=== PATIENT | male | born 1965 | race Caucasian/White ===

== ENCOUNTER 2019-04-01 12:32 | Observation (INO) ==
--- NOTE | 2019-04-01 13:02 | Emergency Department Note ---
Disposition Clinical Impression: Chest pain Qualifiers: Chest pain type: unspecified Qualified Code(s): R07.9 - Chest pain, unspecified Disposition: Admitted As Inpatient Condition: Good Time of Disposition: 19:48 General Adult HPI - General Chief complaint: ED Chest Pain Stated complaint: HHR,Don't feel right Time Seen by Provider: 04/01/19 12:45 Source: patient Nursing Notes Reviewed: Yes Vital Signs Reviewed: Yes - History of Present Illness Pain Scale: 0 - Related Data Home Medications Medication Instructions Recorded Confirmed No Known Home Drugs 04/01/19 04/01/19 Allergies Allergy/AdvReac Type Severity Reaction Status Date / Time No Known Allergies Allergy Verified 04/01/19 13:30 Past Medical History - Past Medical History Medical history: Reports: no medical history Psychiatric history: Reports: no psych history - Social History Smoking Status: Never smoker Smokeless Tobacco Status: No Alcohol use: Reports: occasionally Drug use: Reports: none Physical Exam - General General appearance: alert Course Vital Signs Temperature 97.6 F 04/01/19 12:45 Pulse Rate 74 04/01/19 12:45 Respiratory Rate 17 04/01/19 12:45 Blood Pressure 160/99 04/01/19 12:45 O2 Sat by Pulse Oximetry 96 04/01/19 12:45 Temperature 97.9 F 04/01/19 19:47 Pulse Rate 61 04/01/19 19:47 Respiratory Rate 16 04/01/19 19:47 Blood Pressure 134/84 04/01/19 19:47 O2 Sat by Pulse Oximetry 95 04/01/19 19:47 Oxygen Delivery Oxygen Delivery Room Air Medical Decision Making - [facility] Narrative Medical decision making narrative: 1245 hrs.: EKG shows a sinus rhythm, rate is 62, QRS is 124, QTC is 4:30, patient states he was just here at the hospital but we do not seem to have aortic EKG to compare this to. Chest X-Ray 04/01/19 13:23 IMPRESSION: No acute cardiopulmonary process. D/ / 04/01/2019 13:53:23 Zac Storey MD / [facility] Interpreting Provider: Zac Storey MD - Lab Data Result diagrams: 04/01/19 13:37 04/01/19 13:37 Lab Results 04/01/19 04/01/1919 Range/Units 12:40 13:37 13:37 WBC 8.2 (4.3-11.1) K/mcL RBC 4.79 (4.19-5.50) M/mcL Hgb 14.4 (12.9-16.9) g/dL Hct 42.8 (37.5-50.1) % MCV 89.4 (83.0-100.0) fL MCH 30.1 (28.0-33.3) pg MCHC 33.6 (31.6-35.5) g/dL RDW 11.9 (11.5-14.5) % Plt Count 229 (140-400) K/mcL MPV 10.0 (9.4-12.4) fL Immature Gran % 0.6 (0-4) % Seg Neutrophils % 80.5 % Lymphocytes % 13.2 % Monocytes % 5.3 % Eosinophils % 0.2 % Basophils % 0.2 % Neutrophils # 6.6 (1.6-8.9) K/mcL Lymphocytes # 1.1 (0.6-4.6) K/mcL Monocytes # 0.4 (0.0-1.3) K/mcL Eosinophils # 0.0 (0.0-0.6) K/mcL Basophils # 0.0 (0.0-0.2) K/mcL Sodium 140 (136-145) mEq/L Potassium 3.8 (3.5-5.1) mEq/L Chloride 104 (98-107) mEq/L Carbon Dioxide 24 (23-29) mEq/L BUN 10 (6-20) mg/dL Creatinine 0.92 (0.70-1.30) mg/dL Est GFR ( Amer) > 60 (> 60) Est GFR (Non-Af Amer) > 60 (> 60) BUN/Creatinine Ratio 11 (6-26) Glucose 105 (70-105) mg/dL POC Glucose 100 H (70-99) mg/dL Calculated Osmolality 289 (280-300) Calcium 9.2 (8.6-10.3) mg/dL Troponin I < 0.03 (< 0.04) ng/mL Attestation Statement - Attestation Attestation: This documentation is done with the assistance of Dragon dictation. Despite efforts made to ensure accuracy, there may be inaccuracies in facilities clerk or spelling and typographical errors. I examined this patient and my medical decision-making was reviewed with the Resident Physician. I agree with the documented findings, disposition and treatment plan as described except to the extent set forth below. Patient was seen and evaluated by Dr. Cool, I agree with their evaluation and management plan, I supervised care the patient's stay. Patient presents today with what he describes as chest pressure not pain but it does go into his left shoulder he has been, sweaty. He says heart rate was up in the 80s which is unusual for him. He is not short of breath. We will order a workup on him nitroglycerin trial aspirin cardiac workup EKG chest x-ray. He is in agreement with plan. I reviewed the residents documentation and agree with the residents assessment and plan of care. I have personally had face to face time with the patient. (Brief History, Brief Exam, and MDM) I personally supervised and was present for the ramirez/critical portions of the following procedures completed by the resident: EKG was interpreted by the resident under my supervision, I agree with their interpretation.
--- NOTE | 2019-04-01 13:27 | Emergency Department Note ---
Disposition Clinical Impression: Chest pain Qualifiers: Chest pain type: unspecified Qualified Code(s): R07.9 - Chest pain, unspecified Disposition: Admitted As Inpatient Condition: Good Referrals: NONE,PCP [Primary Care Provider] - Forms: ED Satisfaction Letter Time of Disposition: 15:10 Chest Pain HPI - General Chief Complaint: ED Chest Pain Stated Complaint: HHR,Don't feel right Time Seen by Provider: 04/01/19 12:45 Source: patient Vital Signs Reviewed: Yes Nursing Notes Reviewed: Yes - History of Present Illness HPI Narrative: Arm soreness that began around 10:30 today. No history of this before. He reports no significant past medical history. He states he fell he gets heart was racing about a week ago when he was seen at [facility] for that. He has a Holter monitor on at this time. He was observed overnight there and then ended up being discharged. The concern was for possible diabetic issue as the patient does not eat regularly. Patient does have an appointment to have his A1c checked. No history of diabetes for him. States that today he was at rest and every started having this funny feeling in his chest. He reports as a heaviness sensation. He is otherwise well. Denies any shortness of breath or chest pain. Patient does report diaphoresis associated with this. No swelling to his extremities. Has not tried anything to make this better or worse. Did take a full aspirin this morning. Severity scale (1-10): 0 - Related Data Home Medications Medication Instructions Recorded Confirmed No Known Home Drugs 04/01/19 04/01/19 Allergies Allergy/AdvReac Type Severity Reaction Status Date / Time No Known Allergies Allergy Verified 04/01/19 13:30 All systems ED: reviewed and negative except as stated. Review of Systems: As Per HPI Constitutional: Denies: fever, chills ENT ED: Denies: congestion Cardiovascular: Reports: chest pain, palpitations (Feels like his heart is racing the season goes up to the 80s.). Denies: syncope Respiratory: Denies: cough, dyspnea, sputum production Gastrointestinal: Denies: abdominal pain, nausea, vomiting, diarrhea Genitourinary: Denies: urgency, dysuria, frequency Neurological: Reports: headache, weakness Chest Pain PMH - Past Medical History Medical history: Reports: no medical history Psychiatric history: Reports: no psych history - Social History Smoking Status: Never smoker Alcohol use: Reports: occasionally Drug use: Reports: none Physical Exam - General Limitations: no limitations General appearance: alert, in no apparent distress - Head Head exam: atraumatic, normocephalic, normal inspection - Eye Eye exam: Present: normal appearance, PERRL, EOMI - ENT ENT exam: normal exam, normal oropharynx, mucous membranes moist - Neck Neck exam: Present: normal inspection, full ROM, trachea midline - Chest Chest inspection: Present: normal inspection, symmetric chest wall rise - Respiratory Respiratory exam: Present: normal lung sounds bilaterally. Absent: respiratory distress, accessory muscle use - Cardiovascular Cardiovascular exam: Present: regular rate, normal rhythm, normal heart sounds - Abdominal Exam Abdominal exam: Present: soft, Non-Tender. Absent: tenderness, distention, guarding, rebound, rigidity - Extremities Exam Extremities exam: Present: normal inspection, full ROM, normal capillary refill. Absent: tenderness, pedal edema - Back Exam Back exam: Present: normal inspection, full ROM. Absent: tenderness - Neurological Exam Neurological exam: Present: alert, oriented X3 - Psychiatric Psychiatric exam: Present: normal affect, normal mood - Skin Skin exam: Present: warm, dry, intact, normal color, diaphoresis (Skin is a little tachy at this time.). Absent: rash, cyanosis Course Course Narrative: Patient with chest pain that began this morning. He is insistent that it is not a pain that is only a pressure but it does radiate to his left arm. He is not tried anything for this other than one aspirin. We will get a basic cardiac workup on the patient inclusive of a troponin as well as an EKG and chest x-ray. He does have a Holter monitor on at this time. He has not had a cardiac workup previously. He is not a smoker. Is no history of diabetes however his story is concerning and he is mildly diaphoretic at this time. He denies any nausea associated with this. - Reevaluation(s) Reevaluation #1: Patient's lab workup is unremarkable. Patient's story is concerning for cardiac origin. No signs of acute ischemia on the EKG. Patient has not had a cardiac workup previously. He is currently wearing a Holter monitor. His pain did relieve completely with one nitroglycerin. We will admit to the hospital for further cardiac evaluation. Time: 14:54 - Consultations Consultation #1: Dr Campbell accepted Pt in [place] condition. Time: 15:09 Vital Signs Temperature 97.6 F 04/01/19 12:45 Pulse Rate 74 04/01/19 12:45 Respiratory Rate 17 04/01/19 12:45 Blood Pressure 160/99 04/01/19 12:45 O2 Sat by Pulse Oximetry 96 04/01/19 12:45 Temperature 97.6 F 04/01/19 12:45 Pulse Rate 57 04/01/19 14:22 Respiratory Rate 18 04/01/19 14:22 Blood Pressure 123/90 04/01/19 14:22 O2 Sat by Pulse Oximetry 98 04/01/19 14:22 Oxygen Delivery Oxygen Delivery Room Air Chest Pain - Medical Records Medical records reviewed: Yes I reviewed the patient's medical records. - Lab Data Lab results reviewed: Yes I reviewed the patient's lab results. Result diagrams: 04/01/19 13:37 04/01/19 13:37 Lab Results 04/01/19 04/01/19 04/01/19 Range/Units 12:40 13:37 13:37 WBC 8.2 (4.3-11.1) K/mcL RBC 4.79 (4.19-5.50) M/mcL Hgb 14.4 (12.9-16.9) g/dL Hct 42.8 (37.5-50.1) % MCV 89.4 (83.0-100.0) fL MCH 30.1 (28.0-33.3) pg MCHC 33.6 (31.6-35.5) g/dL RDW 11.9 (11.5-14.5) % Plt Count 229 (140-400) K/mcL MPV 10.0 (9.4-12.4) fL Immature Gran % 0.6 (0-4) % Seg Neutrophils % 80.5 % Lymphocytes % 13.2 % Monocytes % 5.3 % Eosinophils % 0.2 % Basophils % 0.2 % Neutrophils # 6.6 (1.6-8.9) K/mcL Lymphocytes # 1.1 (0.6-4.6) K/mcL Monocytes # 0.4 (0.0-1.3) K/mcL Eosinophils # 0.0 (0.0-0.6) K/mcL Basophils # 0.0 (0.0-0.2) K/mcL Sodium 140 (136-145) mEq/L Potassium 3.8 (3.5-5.1) mEq/L Chloride 104 (98-107) mEq/L Carbon Dioxide 24 (23-29) mEq/L BUN 10 (6-20) mg/dL Creatinine 0.92 (0.70-1.30) mg/dL Est GFR ( Amer) > 60 (> 60) Est GFR (Non-Af Amer) > 60 (> 60) BUN/Creatinine Ratio 11 (6-26) Glucose 105 (70-105) mg/dL POC Glucose 100 H (70-99) mg/dL Calculated Osmolality 289 (280-300) Calcium 9.2 (8.6-10.3) mg/dL Troponin I < 0.03 (< 0.04) ng/mL - Radiology Data Radiology results reviewed: Yes I reviewed the patient's radiology results. Chest X-Ray 04/01/19 13:23 IMPRESSION: No acute cardiopulmonary process. D/ / 04/01/2019 13:53:23 Zac Storey MD / [facility] Interpreting Provider: Zac Storey MD - EKG Data EKG attestation: Yes I reviewed and interpreted this EKG. EKG results narrative: Normal sinus rhythm at a rate 62. W[place] interval is 160. Your's duration is 124. QT is 423. QTC is 4:30. No signs of acute ischemia. Good R-wave progression. No signs of WPW or Brugada. No previous EKG to compare to. Heart Score - Score History: Highly Suspicious EKG: Normal Age: 45-65 Risk Factors: No risk factors known Troponin: Less than normal limit HEART Score Total: 3
[2019-04-01] MEDS ORDERED: Nitroglycerin 0.4 MG TAB.SUBL SL STA (13:28)
[2019-04-01] MEDS ORDERED: Aspirin 81 MG TAB.CHEW PO STA (13:40)
[2019-04-01 14:05] LABS: Basophils % 0.2 %; Eosinophils % 0.2 %; Hematocrit 42.8 % (37.5-50.1); Hemoglobin 14.4 g/dL (12.9-16.9); Immature Granulocytes % 0.6 % (0-4); Lymphocytes # 1.1 K/mcL (0.6-4.6); Lymphocytes % 13.2 %; Mean Corpuscular HGB Conc 33.6 g/dL (31.6-35.5); Mean Corpuscular Hemoglobin 30.1 pg (28.0-33.3); Mean Corpuscular Volume 89.4 fL (83.0-100.0); Monocytes # 0.4 K/mcL (0.0-1.3); Monocytes % 5.3 %; Neutrophils # 6.6 K/mcL (1.6-8.9); Platelet Count 229 K/mcL (140-400); Red Blood Count 4.79 M/mcL (4.19-5.50); Red Cell Distribution Width 11.9 % (11.5-14.5); Segmented Neutrophils % 80.5 %; White Blood Count 8.2 K/mcL (4.3-11.1)
[2019-04-01 14:26] LABS: BUN/Creatinine Ratio 11 (6-26); Blood Urea Nitrogen 10 mg/dL (6-20); Calcium 9.2 mg/dL (8.6-10.3); Carbon Dioxide 24 mEq/L (23-29); Chloride 104 mEq/L (98-107); Glucose 105 mg/dL (70-105); Osmolality,Calculated 289 (280-300); Potassium 3.8 mEq/L (3.5-5.1); Sodium 140 mEq/L (136-145); Troponin I < 0.03 ng/mL (< 0.04); eGFR For African Americans > 60 (> 60); eGFR For Non-African Americans > 60 (> 60)
[2019-04-01] MEDS ORDERED: Ondansetron 4 MG/2 ML VIAL IVP PRN (15:15)
[2019-04-01] MEDS ORDERED: Naloxone 0.4 MG/ML INJ IVP PRN (15:15)
[2019-04-01] MEDS ORDERED: Nitroglycerin 0.4 MG TAB.SUBL SL PRN (15:17)
--- NOTE | 2019-04-01 15:54 | Internal Med History&Physical ---
Date of Encounter: 04/01/19 Time of Encounter: 15:49 Internal Medicine - H&P: HPI History of present illness: Mr. Jackson is a 54 year old male with no known past medical history presented for left arm soreness with a mild squeezing sensation of his left/substernal region of chest. This occurred in late . One week ago at rest he began having light headedness with diaphoresis that resolved spontaneously. Today he began having same sensation again prior to onset of left arm aching. He also noted palpitations. He denies SOB, n/v, numbness/tingling, abdominal pain, headache, change in vision, fevers/chills. In the ED an initial troponin was negative. EKG was unremarkable. He was given aspirin and nitro was given which alleviated his pain. Past Med Surg Social Fam HX - Past Medical History Medical history: no medical history Psychiatric history: no psych history - Social History Smoking Status: Never smoker Smokeless Tobacco Status: No Alcohol use: occasionally Drug use: none Internal Medicine - H&P: Meds No Known Home Drugs 04/01/19 [History] Allergy/AdvReac Type Severity Reaction Status Date / Time No Known Allergies Allergy Verified 04/01/19 13:30 All Systems PM: A 10-system review of systems was performed and is negative for pertinent findings except as documented above in the HPI. - Constitutional Constitutional: no chills, no fever(s), no night sweats - EENT Eyes: no change in vision, no discharge, no pain, no photophobia Ears: no ear discharge, no ear pain, no tinnitus Nose, mouth and throat: no dysphagia, no nasal discharge, no neck pain, no sore throat - Cardiovascular Cardiovascular ROS IM: chest pain, diaphoresis, lightheadedness, palpitations, no dyspnea, no syncope - Respiratory Respiratory: no cough, no dyspnea, no wheezing, no excessive phlegm production - Gastrointestinal Gastrointestinal: no abdominal pain, no diarrhea, no hematemesis, no hematochezia, no melena, no nausea, no vomiting - Musculoskeletal Musculoskeletal ROS IM: no numbness, no tingling - Integumentary Integumentary IM: no rash, no unusual bruising - Neurological Neurological ROS: no confusion, no convulsions, no focal weakness, no numbness, no tingling, no tremor(s) - Hematologic/Lymphatic Hematologic/Lymphatic: no easy bruising - Constitutional Vitals: Temp Pulse Resp BP Pulse Ox 97.6 F 57 18 123/90 98 04/01/19 12:45 04/01/19 14:22 04/01/19 14:22 04/01/19 14:22 04/01/19 14:22 General appearance: Present: A&O X 3 Exam: . - Head Head exam: Present: atraumatic, normocephalic - Eye Eye exam: Present: PERRL, conjuntiva pink, sclera anicteric Pupils: Present: PERRL - Neck Neck exam general surgery: Present: supple, trachea midline. Absent: lymphadenopathy - Respiratory Respiratory exam: Present: CTAB. Absent: accessory muscle use, rales, rhonchi, wheezes - Cardiovascular Cardiovascular exam: Present: RRR, +S1, +S2. Absent: diastolic murmur, gallop, rubs, systolic murmur - GI/Abdominal GI/Abdominal exam: Present: normal bowel sounds, soft, no peritoneal signs. Absent: distended, tenderness - Extremities Exam Extremities exam: Present: warm, radial pulses palpable and symmetrical. Absent: calf tenderness, cyanotic, pedal edema - Neurological Exam Neurological exam: Present: CN II-XII intact, oriented X3, no focal deficits. Absent: pronater drift, facial droop, speech deficit - Skin Skin exam: Present: dry, intact Internal Med - H&P Results - Labs CBC & Chem 7: 04/01/19 13:37 04/01/19 13:37 Labs: Short CBC 04/01/19 Range/Units 13:37 WBC 8.2 (4.3-11.1) K/mcL Hgb 14.4 (12.9-16.9) g/dL Hct 42.8 (37.5-50.1) % Plt Count 229 (140-400) K/mcL Neutrophils # 6.6 (1.6-8.9) K/mcL BMP 04/01/19 13:37 Sodium 140 Potassium 3.8 Chloride 104 Carbon Dioxide 24 BUN 10 Creatinine 0.92 Glucose 105 Calcium 9.2 Cardiac Enzymes 04/01/19 Range/Units 13:37 Troponin I < 0.03 (< 0.04) ng/mL - Impressions ITS Impressions Chest X-Ray 04/01/19 13:23 IMPRESSION: No acute cardiopulmonary process. D/ / 04/01/2019 13:53:23 Zac Storey MD / [facility] Interpreting Provider: Zac Storey MD - Assessment and Plan (1) Chest pain Current Visit: Yes Status: Acute Assessment and plan: Will need to rule out ACS based on patient's presentation of symptoms. - Cycle Cardiac enzymes - Echocardiogram - We discussed doing cardiac stress tests. He would like to hold off on this and think about it. Qualifiers: Chest pain type: unspecified Qualified Code(s): R07.9 - Chest pain, unspecified (2) DVT prophylaxis Current Visit: Yes Status: Acute Assessment and plan: Lovenox 40 mg SQ - Time Spent With Patient Total time spent is greater than 50% in coordination of care (as documented) at patient's floor/unit and/or counseling patient:
[2019-04-02] MEDS ORDERED: Regadenoson 0.4 MG/5 ML SYRINGE IVP ONE (07:10)
--- NOTE | 2019-04-02 15:24 | Internal Med Progress Note ---
Hospitalist Progress Note - Encounter Date of Encounter: 04/02/19 Time of Encounter: 15:21 - Subjective Interval History: Seen and examined at bedside. Says he feels back to baseline. Denied CP no SOB - Exam Vitals: Temp Pulse Resp BP Pulse Ox 97.4 F L 60 16 133/76 95 04/02/19 10:40 04/02/19 10:40 04/02/19 10:40 04/02/19 10:40 04/02/19 10:40 Exam: General appearance: Present: A&O X 3, pleasant, no acute distress - Head Head exam: Present: atraumatic, normocephalic - Eye Eye exam: Present: PERRL, conjuntiva pink, sclera anicteric Pupils: Present: PERRL - Neck Neck exam general surgery: Present: supple, trachea midline. Absent: lymphadenopathy - Respiratory Respiratory exam: Present: chest wall tenderness, CTAB. Absent: accessory muscle use, rales, rhonchi, wheezes - Cardiovascular Cardiovascular exam: Present: RRR, +S1, +S2. Absent: diastolic murmur, gallop, rubs, systolic murmur - GI/Abdominal GI/Abdominal exam: Present: normal bowel sounds, soft, no peritoneal signs. Absent: distended, tenderness - Extremities Exam Extremities exam: Present: warm, radial pulses palpable and symmetrical. Absent: calf tenderness, cyanotic, pedal edema - Neurological Exam Neurological exam: Present: CN II-XII intact, oriented X3, no focal deficits. Absent: pronater drift, facial droop, speech deficit - Skin Skin exam: Present: dry, intact - Assessment and Plan (1) Chest pain Current Visit: Yes Status: Acute Assessment and Plan: presented with chest discomfort/left arm discomfort. Symptoms resolved spontaneously without intervention. Serial troponins negative. EKG without acute ST changes. TTE with EF 60%, mild diastolic dysfunction and no significant valvular dysfunction. Stress test pending. (2) DVT prophylaxis Current Visit: Yes Status: Acute Assessment and Plan: Lovenox - Time Spent with Patient Total time spent is greater than 50% in coordination of care (as documented) at patient's floor/unit and/or counseling patient: Internal Medicine: Result - Labs CBC & Chem 7: 04/01/19 13:37 04/01/19 13:37 Labs: Cardiac Enzymes 04/01/19 Range/Units 19:25 Troponin I < 0.03 (< 0.04) ng/mL - Impressions Impressions Echocardiogram 04/02/19 14:02 Impressions: LVEF 60-65%. Normal LV chamber size, wall thickness and function. Mild left ventricular diastolic dysfunction. Atypical septal motion consistent with bundle branch block. Mildly dilated right ventricle with normal function. No evidence of pulmonary hypertension. No significant valvular dysfunction. Left Ventricular Wall Motion: Rest Echo Findings All wall segments showed normal motion. Findings: Study Quality * Technically sub-optimal due to body habitus. ECG Findings * Sinus rhythm with BBB. Left Ventricle * LVEF 60-65%. * Normal LV chamber size, wall thickness and function. * Mild left ventricular diastolic dysfunction. * Atypical septal motion consistent with bundle branch block. Right Ventricle * Mildly dilated right ventricle with normal function. Left Atrium * Mildly dilated left atrium. Right Atrium * Mildly dilated right atrium. Interatrial Septum * Interatrial septum not well evaluated. Aortic Valve * Trileaflet aortic valve with normal function. * No aortic regurgitation. * No aortic stenosis. Mitral Valve * Normal mitral valve structure and function. * No mitral regurgitation. * No mitral stenosis. Tricuspid Valve * Normal tricuspid valve structure and function. * Trace tricuspid regurgitation. * No evidence of pulmonary hypertension. Pulmonic Valve * Pulmonic valve not well visualized. * No pulmonic regurgitation. Aorta * Normally sized aortic root. Pericardium * The pericardium appears normal. IVC * Normal IVC dimensions and inspiratory collapse. Pulmonary Artery * Pulmonary artery not well visualized. Consult Discharge Plan - Plan Referrals: NONE,PCP [Primary Care Provider] - (1) Chest pain Qualifiers: Chest pain type: unspecified Qualified Code(s): R07.9 - Chest pain, unspecified
[2019-04-03 06:20] LABS: Hematocrit 43.9 % (37.5-50.1); Hemoglobin 14.5 g/dL (12.9-16.9); Mean Corpuscular Volume 90.9 fL (83.0-100.0); Mean Platelet Volume 9.2 fL (9.4-12.4); Platelet Count 234 K/mcL (140-400); Red Blood Count 4.83 M/mcL (4.19-5.50); White Blood Count 7.5 K/mcL (4.3-11.1)
[2019-04-03 06:40] LABS: Alanine Aminotransferase 12 Units/L (7-52); Albumin/Globulin Ratio 1.9 (1.1-2.2); Alkaline Phosphatase 50 Units/L (34-104); Aspartate Amino Transferase 12 Units/L (13-39); BUN/Creatinine Ratio 13 (6-26); Bilirubin,Total 0.6 mg/dL (0.3-1.0); Blood Urea Nitrogen 13 mg/dL (6-20); Carbon Dioxide 28 mEq/L (23-29); Chloride 105 mEq/L (98-107); Globulin 2.1 g/dL (2.4-3.5); Glucose 104 mg/dL (70-105); Osmolality,Calculated 290 (280-300); Potassium 3.8 mEq/L (3.5-5.1); Sodium 140 mEq/L (136-145); Total Protein 6.1 g/dL (6.4-8.9); eGFR For African Americans > 60 (> 60); eGFR For Non-African Americans > 60 (> 60)
--- NOTE | 2019-04-03 10:23 | Internal Med Progress Note ---
Hospitalist Progress Note - Encounter Date of Encounter: 04/03/19 Time of Encounter: 10:22 - Subjective Interval History: Patient seen and examined in the room. He reported absence of chest pain, lightheadedness, or palpitation. - Exam Vitals: Temp Pulse Resp BP Pulse Ox 97.9 F 59 18 129/82 95 04/03/19 07:22 04/03/19 07:22 04/03/19 07:22 04/03/19 07:22 04/03/19 07:22 Exam: General appearance: Present: A&O X 3, pleasant, no acute distress - Head Head exam: Present: atraumatic, normocephalic - Eye Eye exam: Present: PERRL, conjuntiva pink, sclera anicteric Pupils: Present: PERRL - Neck Neck exam general surgery: Present: supple, trachea midline. Absent: lymphadenopathy - Respiratory Respiratory exam: Present: chest wall tenderness, CTAB. Absent: accessory muscle use, rales, rhonchi, wheezes - Cardiovascular Cardiovascular exam: Present: RRR, +S1, +S2. Absent: diastolic murmur, gallop, rubs, systolic murmur - GI/Abdominal GI/Abdominal exam: Present: normal bowel sounds, soft, no peritoneal signs. Absent: distended, tenderness - Extremities Exam Extremities exam: Present: warm, radial pulses palpable and symmetrical. Absent: calf tenderness, cyanotic, pedal edema - Neurological Exam Neurological exam: Present: CN II-XII intact, oriented X3, no focal deficits. Absent: pronater drift, facial droop, speech deficit - Skin Skin exam: Present: dry, intact - Assessment and Plan (1) Chest pain Current Visit: Yes Status: Acute Assessment and Plan: presented with chest discomfort/left arm discomfort. Symptoms resolved spontane ously without intervention. Serial troponins negative. EKG without acute ST changes. TTE with EF 60%, mild diastolic dysfunction and no significant valvular dysfunction. Stress test abnormal. Cardiology consulted, appreciate help. (2) DVT prophylaxis Current Visit: Yes Status: Acute Assessment and Plan: Lovenox - Time Spent with Patient Total time spent is greater than 50% in coordination of care (as documented) at patient's floor/unit and/or counseling patient: Greater than 35 minutes Plan of Care Discussed with: patient Internal Medicine: Result - Labs CBC & Chem 7: 04/03/19 05:43 04/03/19 05:43 Labs: Short CBC 04/03/19 Range/Units 05:43 WBC 7.5 (4.3-11.1) K/mcL Hgb 14.5 (12.9-16.9) g/dL Hct 43.9 (37.5-50.1) % Plt Count 234 (140-400) K/mcL BMP 04/03/19 05:43 Sodium 140 Potassium 3.8 Chloride 105 Carbon Dioxide 28 BUN 13 Creatinine 0.97 Glucose 104 Calcium 9.0 Liver Function 04/03/19 Range/Units 05:43 Total Bilirubin 0.6 (0.3-1.0) mg/dL AST 12 L (13-39) Units/L ALT 12 (7-52) Units/L Alkaline Phosphatase 50 (34-104) Units/L Albumin 4.0 (3.5-5.7) g/dL - Impressions Impressions Echocardiogram 04/02/19 14:02 Impressions: LVEF 60-65%. Normal LV chamber size, wall thickness and function. Mild left ventricular diastolic dysfunction. Atypical septal motion consistent with bundle branch block. Mildly dilated right ventricle with normal function. No evidence of pulmonary hypertension. No significant valvular dysfunction. Left Ventricular Wall Motion: Rest Echo Findings All wall segments showed normal motion. Findings: Study Quality * Technically sub-optimal due to body habitus. ECG Findings * Sinus rhythm with BBB. Left Ventricle * LVEF 60-65%. * Normal LV chamber size, wall thickness and function. * Mild left ventricular diastolic dysfunction. * Atypical septal motion consistent with bundle branch block. Right Ventricle * Mildly dilated right ventricle with normal function. Left Atrium * Mildly dilated left atrium. Right Atrium * Mildly dilated right atrium. Interatrial Septum * Interatrial septum not well evaluated. Aortic Valve * Trileaflet aortic valve with normal function. * No aortic regurgitation. * No aortic stenosis. Mitral Valve * Normal mitral valve structure and function. * No mitral regurgitation. * No mitral stenosis. Tricuspid Valve * Normal tricuspid valve structure and function. * Trace tricuspid regurgitation. * No evidence of pulmonary hypertension. Pulmonic Valve * Pulmonic valve not well visualized. * No pulmonic regurgitation. Aorta * Normally sized aortic root. Pericardium * The pericardium appears normal. IVC * Normal IVC dimensions and inspiratory collapse. Pulmonary Artery * Pulmonary artery not well visualized. Consult Discharge Plan - Plan Referrals: NONE,PCP [Primary Care Provider] - (1) Chest pain Qualifiers: Chest pain type: unspecified Qualified Code(s): R07.9 - Chest pain, unspecified
--- NOTE | 2019-04-03 13:48 | Electrocardiograph Report ---
[address] [place], [place] [address] Test Date: 2019-04-01 Pat Name: Praveen Jackson Department: [id number] Room: 3B Gender: M [employer]: : 1965 Requested By: Tom Lewis Order Number: [id number] Reading MD: Willie Torres Measurements Intervals [place] Rate: 62 P: 63 MI: 160 QRS: 30 QRSD: 124 T: 65 QT: 423 QTc: 430 Interpretive Statements Sinus rhythm Nonspecific intraventricular conduction delay Electronically Signed On 04-03-2019 13:46:34 EDT by Willie Torres
--- NOTE | 2019-04-03 14:08 | Cardiology Consult Note ---
<Socrates Dick - Last Filed: 04/03/19 15:32> Date of Encounter: 04/03/19 Time of Encounter: 14:05 Assessment and Plan (1) Chest pain Status: Acute Per Cardiology: Atypical symptoms. Troponins negative. ECHO: Impressions: LVEF 60-65%. Normal LV chamber size, wall thickness and function. Mild left ventricular diastolic dysfunction. Atypical septal motion consistent with bundle branch block. Mildly dilated right ventricle with normal function. No evidence of pulmonary hypertension. No significant valvular dysfunction. Left Ventricular Wall Motion: Rest Echo Findings All wall segments showed normal motion. Qualifiers: Chest pain type: unspecified Qualified Code(s): R07.9 - Chest pain, unspecified (2) Abnormal nuclear stress test Status: Acute Per Cardiology: Abnormal nuclear stress test. Discussed and reviewed options of medical managem ent and monitoring with outpatient follow-up versus further ischemic evaluation. Patient currently contemplating with fiance on how he would elect to proceed. We will make nothing to eat after midnight in case Physician tomorrow. Discussed and reviewed with Dr. Sauceda. Add asa, statin, BB. (3) Palpitations Status: Acute Per Cardiology: No events noted on telemetry. Average heart rate 66, sinus rhythm. We will add low-dose beta ese. Had outpatient Holter completed recently, results pending. Discussion w patient/family: The assessment and plan as outlined above was discussed with the patient and/or family members who expressed understanding and agreement. All questions were answered. Thank you for involving us in the care of your patient. Please call with any questions. History of Present Illness Consult date: 04/03/19 Consult reason: Chest pain, abnormal stress test Chief complaint: CP History of present illness: Mr. Jackson is a 54 year old male with a relevant past medical history of HLD and obesity. Cardiology consult for chest pain and abnormal nuclear stress test results. Patient indicates a few weeks ago episode of dizziness while at rest. Indicates was at ER in [facility] and ruled out for an FL and discharged home. Saw PCP and had Holter ordered for concerns of a few palpitations with dizziness. He indicates wearing the monitor this past weekend and developed "funny sensation" in his chest and left arm area that last a few seconds and subsided intermittently. He denied any chest pain. He denied any nausea, vomiting, diarrhea. Denies any syncope or falls. Denies any decrease physical activity and denies any dyspnea on exertion or fatigue over the past few weeks to months. Indicates active doing yard work with no difficulty. Denies any past coronary artery disease history. Denies any immediate family history. Has never smoked. Denies any diabetes mellitus. Currently chest pain-free. Past Med Surg Social Fam HX - Past Medical History Attestation: Yes The following information was validated with the patient. Source: patient, old records reviewed Medical history: no medical history Psychiatric history: no psych history - Past Surgical History Surgical History: no surgical history - Social History Smoking Status: Never smoker Smokeless Tobacco Status: No Alcohol use: occasionally Drug use: none - Family History Mother Living Status: Age at : 70 Cause of : AAA Hx Family Cardiac Disorders: Yes (AAA) Grandmother Living Status: Age at : 70 Cause of : AAA Hx Family Cardiac Disorders: Yes (AAA) Medications and Allergies Aspirin Enteric Coated [Aspirin EC] 81 mg PO DAILY #30 tablet. 04/03/19 [Rx] Atorvastatin [Lipitor] 20 mg PO HS #30 tablet 04/03/19 [Rx] Metoprolol [Lopressor] 12.5 mg PO BID #60 tablet 04/03/19 [Rx] Nitroglycerin 0.4 mg SL Q5MIN PRN #10 tab.subl 04/03/19 [Rx] Allergy/AdvReac Type Severity Reaction Status Date / Time No Known Allergies Allergy Verified 04/01/19 13:30 All Systems Review: The remainder of the systems were reviewed and are negative - Cardiovascular Cardiovascular: as per HPI, lightheadedness, palpitations Physical Examination Vital Signs, Last 4 Hours Temp Pulse Resp BP Pulse Ox 04/03/19 11:32 97.5 F L 68 18 122/84 96 General: Conversant, No Apparent Distress HEENT: Atraumatic, Normocephaly, Mucus Membranes Moist Neck: No JVD, Normal carotid pulses Cardiac: Reg Rate and Rhythm, Normal S1 and S2, No Murmur Lungs: Normal Breath Sounds, No Wheeze, Rales, Rhonchi Neuro: Alert and responsive, No focal deficits noted Abdomen: Soft, Non-Tender Skin: No rashes noted on visualized skin Musculoskeletal: No Chest Wall Tenderness Extremities: No Clubbing, No Cyanosis, No Edema, Normal Pulses Results 04/03/19 05:43 04/03/19 05:43 Lab Results Laboratory Tests 04/01/19 04/01/19 04/03/19 13:37 19:25 05:43 Hgb 14.5 Hct 43.9 Creatinine Est GFR (Non-Af Amer) AST ALT Troponin I < 0.03 < 0.03 04/03/19 05:43 Hgb Hct Creatinine 0.97 Est GFR (Non-Af Amer) > 60 AST 12 L ALT 12 Troponin I ITS Impressions Chest X-Ray 04/01/19 13:23 IMPRESSION: No acute cardiopulmonary process. D/ / 04/01/2019 13:53:23 Zac Storey MD / [facility] Interpreting Provider: Zac Storey MD Echocardiogram 04/02/19 14:02 Impressions: LVEF 60-65%. Normal LV chamber size, wall thickness and function. Mild left ventricular diastolic dysfunction. Atypical septal motion consistent with bundle branch block. Mildly dilated right ventricle with normal function. No evidence of pulmonary hypertension. No significant valvular dysfunction. Left Ventricular Wall Motion: Rest Echo Findings All wall segments showed normal motion. Findings: Study Quality * Technically sub-optimal due to body habitus. ECG Findings * Sinus rhythm with BBB. Left Ventricle * LVEF 60-65%. * Normal LV chamber size, wall thickness and function. * Mild left ventricular diastolic dysfunction. * Atypical septal motion consistent with bundle branch block. Right Ventricle * Mildly dilated right ventricle with normal function. Left Atrium * Mildly dilated left atrium. Right Atrium * Mildly dilated right atrium. Interatrial Septum * Interatrial septum not well evaluated. Aortic Valve * Trileaflet aortic valve with normal function. * No aortic regurgitation. * No aortic stenosis. Mitral Valve * Normal mitral valve structure and function. * No mitral regurgitation. * No mitral stenosis. Tricuspid Valve * Normal tricuspid valve structure and function. * Trace tricuspid regurgitation. * No evidence of pulmonary hypertension. Pulmonic Valve * Pulmonic valve not well visualized. * No pulmonic regurgitation. Aorta * Normally sized aortic root. Pericardium * The pericardium appears normal. IVC * Normal IVC dimensions and inspiratory collapse. Pulmonary Artery * Pulmonary artery not well visualized. Active Medications Hydralazine HCl (Hydralazine) 10 mg IVP Q6HR PRN PRN Reason: SEE COMMENTS Stop: 10/01/19 15:57 Naloxone HCl (Narcan) 0.4 mg IVP Q2MPRN PRN PRN Reason: SEE COMMENTS Stop: 10/01/19 15:16 Nitroglycerin (Nitroglycerin) 0.4 mg SL Q5MIN PRN PRN Reason: Chest Pain Stop: 10/01/19 15:18 Ondansetron HCl (Zofran) 4 mg IVP Q8HR PRN PRN Reason: Nausea And Vomiting Stop: 10/01/19 15:16 - Imaging and Cardiology Stress Test: report reviewed Echo: report reviewed - EKG Interpretation EKG results cardiology: personally reviewed, sinus rhythm, no diagnostic ischemia Consult Discharge Plan - Plan Instructions: Metoprolol (By mouth), Aspirin (By mouth), Nitroglycerin, Rapid Release (By mouth), Atorvastatin (By mouth), Chest Pain (DC) Referrals: Gerson Sauceda MD [Non-Partnered Physician] - (Office will call to schedule follow up) NONE,PCP [Primary Care Provider] - (Call [phone] to get set up with an [facility] PCP) Prescriptions: Aspirin Enteric Coated [Aspirin EC] 81 mg PO DAILY #30 tablet. Atorvastatin [Lipitor] 20 mg PO HS #30 tablet Metoprolol [Lopressor] 12.5 mg PO BID #60 tablet Nitroglycerin 0.4 mg SL Q5MIN PRN #10 tab.subl PRN Reason: Chest Pain HAS-BLED Score - Score Medication usage predisposing to bleeding: Antiplatelet agents, NSAIDs, Anticoagulants (started on asa now) Score: 1 <Gerson Sauceda - Last Filed: 04/03/19 22:29> Date of Encounter: 04/03/19 - Attending Attestation Patient was seen and evaluated independently by me. Findings, assessment and plan were discussed at length with patient, questions answered. Agree with nurse practitioner's/resident's documentation. Addition as follows, 54yoCM ho HLD, obesity. P/w one episode of dizziness 1 wk ago followed by vague chest/left arm discomfort and palpitation. No cp walking 1 mile or moderate exertion. Trop neg, ECG no ischemic changes. Pharm SPECT mild mid-basal inferior ishemia SDS 4. TTE preserved LVEF w/o RWMA. VSS, CTA, RR, no LE edema. A: Chest pain, atypical Abnormal SPECT, suspected mild inferior ischemia Palpitations, pending Holter report P: ASA, statin, BB Recommend LHC, pt prefers trial of medical management. Ask pt to come to ED if recurrent chest pain Gerson Sauceda MD, PhD Assessment and Plan Discussion w patient/family: The assessment and plan as outlined above was discussed with the patient and/or family members who expressed understanding and agreement. All questions were answered. Thank you for involving us in the care of your patient. Please call with any questions. History of Present Illness History of present illness: Mr. Jackson is a 54 year old male All Systems Review: The remainder of the systems were reviewed and are negative Results 04/03/19 05:43 04/03/19 05:43 Lab Results 04/03/19 04/03/19 05:43 05:43 WBC 7.5 Hgb 14.5 Hct 43.9 Plt Count 234 Sodium 140 Potassium 3.8 Chloride 105 Carbon Dioxide 28 BUN 13 Creatinine 0.97 Glucose 104 Calcium 9.0 Total Bilirubin 0.6 AST 12 L ALT 12 Alkaline Phosphatase 50
[2019-04-03 15:39] VITALS: BP 132/87
[2019-04-03] MEDS ORDERED: Aspirin Enteric Coated 81 MG Tablet PO SCH (15:45)
--- NOTE | 2019-04-03 16:26 | Event Note ---
Date of Encounter: 04/03/19 Time of Encounter: 16:25 - Cardiology Event Note Patient has decided to proceed with medical management and outpatient follow-up. Cardial G Sine-Off, reconsult as needed, follow-up arranged. Discussed with Dr. Sauceda.
--- NOTE | 2019-04-03 16:37 | Discharge Summary ---
- NOTES TO OUTPATIENT PROVIDER Notes to Outpatient Provider: f/u with cardiology within a week. f/u with PCP within a week. Date of Encounter: 04/03/19 Time of Encounter: 16:35 - Discharge Diagnosis (1) Chest pain Priority: Primary Status: Acute Qualifiers: Chest pain type: unspecified Qualified Code(s): R07.9 - Chest pain, unspecified (2) DVT prophylaxis Priority: Primary Status: Acute Hospital course: Mr. Jackson is a 54 year old male with no known past medical history presented for left arm soreness with a mild squeezing sensation of his left/substernal region of chest. This occurred in late . One week ago at rest he began having light headedness with diaphoresis that resolved spontaneously. Today he began having same sensation again prior to onset of left arm aching. He also noted palpitations. He denies SOB, n/v, numbness/tingling, abdominal pain, headache, change in vision, fevers/chills. In the ED an initial troponin was negative. EKG was unremarkable. He was given aspirin and nitro was given which alleviated his pain. Serial troponin was negative, EKG has no acute ST-T change, an echocardiogram was unremarkable with normal LV ejection fraction, however, stress test was reportedly abnormal, suggestive of a medium sized persistent perfusion defect which is moderate in intensity at the mid inferior and mid-inferoseptal segment suggestive of prior infarct. Cardiology was consulted, left heart catheteri zation was recommended, however, patient and family declined. Cardiology recommended medical management, aspirin, metoprolol, and statins were prescribed. Patient currently chest pain-free, his vital signs were stable, he will be discharged home today, follow-up with PCP and cardiology as scheduled. Discharge discussed with: patient Time spent discussing smoking cessation with patient: more than 10 minutes - Time Spent with Patient Total time spent providing and/or coordinating discharge services: Time spent: Greater than 30 minutes - Discharge Medications Prescriptions: New Aspirin Enteric Coated [Aspirin EC] 81 mg PO DAILY #30 tablet. Atorvastatin [Lipitor] 20 mg PO HS #30 tablet Metoprolol [Lopressor] 12.5 mg PO BID #60 tablet Nitroglycerin 0.4 mg SL Q5MIN PRN #10 tab.subl PRN Reason: Chest Pain Home Medications: Aspirin Enteric Coated [Aspirin EC] 81 mg PO DAILY #30 tablet. 04/03/19 [Rx] Atorvastatin [Lipitor] 20 mg PO HS #30 tablet 04/03/19 [Rx] Metoprolol [Lopressor] 12.5 mg PO BID #60 tablet 04/03/19 [Rx] Nitroglycerin 0.4 mg SL Q5MIN PRN #10 tab.subl 04/03/19 [Rx] Allergies/Adverse Reactions: Allergy/AdvReac Type Severity Reaction Status Date / Time No Known Allergies Allergy Verified 04/01/19 13:30 Date of admission: 04/01/19 15:31 Primary care physician: PCP NONE Consults: 04/03/19 10:21 Consult to Cardiology [CONS] Stat Comment: Consulting Provider: Cardiology [facility] Reason for Consult: abnormal stress test Call Completed: Yes Anticipated date of discharge: 04/03/19 - Constitutional Vitals: Temp Pulse Resp BP Pulse Ox 97.5 F L 74 18 132/87 93 04/03/19 15:38 04/03/19 15:38 04/03/19 15:38 04/03/19 15:38 04/03/19 15:38 General appearance: Present: A&O X 3 Exam: General appearance: Present: A&O X 3, pleasant, no acute distress - Head Head exam: Present: atraumatic, normocephalic - Eye Eye exam: Present: PERRL, conjuntiva pink, sclera anicteric Pupils: Present: PERRL - Neck Neck exam general surgery: Present: supple, trachea midline. Absent: lymphadenopathy - Respiratory Respiratory exam: Present: chest wall tenderness, CTAB. Absent: accessory muscle use, rales, rhonchi, wheezes - Cardiovascular Cardiovascular exam: Present: RRR, +S1, +S2. Absent: diastolic murmur, gallop, rubs, systolic murmur - GI/Abdominal GI/Abdominal exam: Present: normal bowel sounds, soft, no peritoneal signs. Absent: distended, tenderness - Extremities Exam Extremities exam: Present: warm, radial pulses palpable and symmetrical. Absent: calf tenderness, cyanotic, pedal edema - Neurological Exam Neurological exam: Present: CN II-XII intact, oriented X3, no focal deficits. Absent: pronater drift, facial droop, speech deficit - Skin Skin exam: Present: dry, intact - Patient Status Disposition: Home, Self-Care Condition: Good Functional capacity at discharge: independent ambulation Overall status at discharge: patient is progressing back to baseline - Discharge Instructions Follow Up With: NONE,PCP [Primary Care Provider] - - Diet and Activity Activity: increase activity as tolerated Diet: low fat, low cholesterol, low salt diet
== END 2019-04-03 18:02 | disposition home or self-care (01) ==
LOC: 3BNU 12:32 → EMEROOARM 12:32 → 3BNU 16:44
PROVIDERS: ADMIT Student in an Organized Health Care Education/Training Program; ATTEND Student in an Organized Health Care Education/Training Program

== ENCOUNTER 2019-04-11 19:30 | Observation (INO) ==
--- NOTE | 2019-04-11 20:06 | Emergency Department Note ---
Disposition Clinical Impression: Abnormal stress test Chest pain Qualifiers: Chest pain type: other chest pain Qualified Code(s): R07.89 - Other chest pain Disposition: Admitted As Inpatient Condition: Fair Time of Disposition: 21:12 Arrhythmia/Palpitations HPI - General Chief Complaint: ED Arrhythmia/Palpitations Stated Complaint: CP "Ting", Diaphoretic Time Seen by Provider: 04/11/19 19:52 Source: patient Limitations: no limitations - History of Present Illness HPI Narrative: Renetta is a 54 y/o male with no significant pmh but was recently discharged for chest pain who presented to the ED for chest pain. Discharged on 04/03/19 for chest pain. He had an echo and stress test. Stress test was abnormal and cardiology recommended cath. He and his family declined cath but adhered to medical management of statin, aspirin, and metoprolol upon discharged. Today around 6:00pm, he was driving and felt chest pain with associated diaphoresis, denies associated nausea and vomiting. No radiation of pain to arm or jaw. Occurred while he was sitting. He was having brief intermittent "t winges" of pain. It was occurring on the left side. He denies abdominal pain, fevers, changes in bowel or bladder, SOB, headache. Currently not having any chest pain. He does not have chest pain with exertion. - Related Data Home Medications Medication Instructions Recorded Confirmed Atorvastatin Calcium [Lipitor] 20 mg PO HS 04/11/19 04/11/19 Previous Rx's Medication Instructions Recorded Aspirin Enteric Coated [Aspirin EC] 81 mg PO DAILY #30 tablet. 04/03/19 Metoprolol [Lopressor] 12.5 mg PO BID #60 tablet 04/03/19 Nitroglycerin 0.4 mg SL Q5MIN PRN #10 tab.subl 04/03/19 Allergies Allergy/AdvReac Type Severity Reaction Status Date / Time Sulfa (Sulfonamide Allergy Swelling Verified 04/11/19 22:22 Antibiotics) of the Eye All systems ED: reviewed and negative except as stated. Review of Systems: As Per HPI Past Medical History - Past Medical History Medical history: Reports: no medical history, other Surgical history: Reports: no surgical history Psychiatric history: Reports: no psych history - Social History Smoking Status: Never smoker Smokeless Tobacco Status: No Alcohol use: Reports: occasionally Drug use: Reports: none Physical Exam Constitutional: Alert, in no acute distress, well nourished, well developed. Head: Normocephalic, atraumatic, normal contour and symmetric, no masses, le sions or scars Heart: Normal, regular rate and rhythm, no murmurs, chest pain non-reproducible with palpation Lungs: Clear to auscultation, no wheezes, rales, or rhonchi Abdomen: Soft, nondistended, nontender,, no guarding or rigidity. Extremities: No clubbing, cyanosis, or edema, radial pulse +2/4, capillary re fill <2sec. Skin: Skin warm and dry, no lesions, no rashes, no jaundice Psych: Cooperative with exam, good eye contact, cognitive function intact, judgment good insight good, speech clear, thought process logical, and goal dir ected - General Limitations: no limitations General appearance: alert, in no apparent distress Course Course Narrative: Risk factors for cardiac disease includes obesity. He is a non-smoker and has never had htn. HIs heart score is 2 points. EKG shows no ST changes. Stress test showed "There is a medium sized persistent perfusion defect which is moderate in intensity in the mid inferior and mid-inferoseptal segments, suggestive of prior infarct. No definite ischemia." Patient has rethought and would like a cath. He called the cardiology office today to see if he could schedule one outpatient. - Reevaluation(s) Reevaluation #1: Initial labs are normal. Initial troponin normal but symptoms began at 6:00pm therefore less than 3.5 hours ago. Due to having chest pain with diaphoresis, abnormal stress test with recommendation from cardiology for cath will discuss case with admitting hospitalist. Time: 20:46 Reevaluation #2: Discussed case with Dr. Rashid the hospitalist and she accepted patient for chest pain and r/o ACS. She requests the cardiology be consulted for recommendations for possible heparin drip and NPO status. Case discussed with Dr. Sauceda and he said to make patient NPO after midnight and no need for heparin drip. Patient was admitted to the hospitalist. Time: 21:12 Vital Signs Temperature 97.3 F L 04/11/19 19:34 Pulse Rate 66 04/11/19 19:34 Respiratory Rate 16 04/11/19 19:34 Blood Pressure 141/85 04/11/19 19:34 O2 Sat by Pulse Oximetry 94 04/11/19 19:34 Temperature 97.3 F L 04/11/19 19:34 Pulse Rate 66 04/11/19 19:34 Respiratory Rate 16 04/11/19 19:34 Blood Pressure 141/85 04/11/19 19:34 O2 Sat by Pulse Oximetry 94 04/11/19 19:34 Oxygen Delivery Oxygen Delivery Room Air Arrhythmia/Palpitations - Medical Records Medical records reviewed: Yes I reviewed the patient's medical records. - Lab Data Lab results reviewed: Yes I reviewed the patient's lab results. Result diagrams: 04/11/19 19:58 04/11/19 19:58 - EKG Data EKG attestation: Yes I reviewed and interpreted this EKG. EKG shows normal: sinus rhythm Rate: normal Rhythm: NSR [place]/QRS: normal When compared to previous EKG there are: no significant changes Interpretation: unchanged when compared to prior tracing (date) Attestation Statement - Attestation Attestation: I, Barber Miles, examined this patient and my medical decision-making was reviewed with the MORTGAGE LOAN SPECIALIST/PA/Advanced Practice Nurse/Resident Physician. I agree with the documented findings, disposition and treatment plan as described except to the extent set forth below. 54-year-old male presents emergency Department with concerns of chest pain. Patient was recently admitted for similar chest pain and had an abnormal stress test. Patient states he was offered a heart catheterization at that time however he declined. Patient now states his chest pain has not resolved and he was concerned to come back to emergency department for reevaluation. He states he now wants a heart catheterization to be performed. Initial troponin was negative. EKG did not show evidence of STEMI.I reviewed the EKG with the resident and agree with the interpretation. Patient will be admitted to the hospitalist for further care and evaluation.
[2019-04-11 20:20] LABS: Basophils % 0.3 %; Eosinophils # 0.1 K/mcL (0.0-0.6); Eosinophils % 0.7 %; Hematocrit 41.2 % (37.5-50.1); Hemoglobin 14.6 g/dL (12.9-16.9); Immature Granulocytes % 0.6 % (0-4); Lymphocytes # 1.7 K/mcL (0.6-4.6); Lymphocytes % 23.9 %; Mean Corpuscular HGB Conc 35.4 g/dL (31.6-35.5); Mean Corpuscular Hemoglobin 30.6 pg (28.0-33.3); Mean Corpuscular Volume 86.4 fL (83.0-100.0); Mean Platelet Volume 9.7 fL (9.4-12.4); Monocytes # 0.6 K/mcL (0.0-1.3); Monocytes % 9.1 %; Neutrophils # 4.6 K/mcL (1.6-8.9); Platelet Count 224 K/mcL (140-400); Red Blood Count 4.77 M/mcL (4.19-5.50); Red Cell Distribution Width 11.6 % (11.5-14.5); Segmented Neutrophils % 65.4 %
[2019-04-11 20:34] LABS: BUN/Creatinine Ratio 14 (6-26); Blood Urea Nitrogen 12 mg/dL (6-20); Calcium 8.7 mg/dL (8.6-10.3); Carbon Dioxide 21 mEq/L (23-29); Chloride 104 mEq/L (98-107); Glucose 93 mg/dL (70-105); Osmolality,Calculated 283 (280-300); Potassium 3.6 mEq/L (3.5-5.1); Sodium 137 mEq/L (136-145); Troponin I < 0.03 ng/mL (< 0.04); eGFR For African Americans > 60 (> 60); eGFR For Non-African Americans > 60 (> 60)
[2019-04-11] MEDS ORDERED: Aspirin 81 MG TAB.CHEW PO ONE (21:20)
[2019-04-12] MEDS ORDERED: Naloxone 0.4 MG/ML INJ IVP PRN (02:15)
[2019-04-12] MEDS ORDERED: Nitroglycerin 0.4 MG TAB.SUBL SL PRN (02:21)
--- NOTE | 2019-04-12 02:24 | Internal Med History&Physical ---
Date of Encounter: 04/12/19 Time of Encounter: 02:20 Internal Medicine - H&P: HPI Chief complaint: Chest Pain History of present illness: Mr. Jackson is a 54 year old male with no known past medical history presented for reevaluation of chest discomfort. Chest pain on April 01. Workup was notable for a abnormal stress test suggestive of a medium sized persistent perfusion defect involving the mid inferior and mid inferior septal segment suggestive of prior infarct. Cardiology was consulted with the time recommended a left heart catheterization. Patient however declined and opted for medical management with aspirin, beta ese and statin. Patient returns today after having another episode of chest discomfort around 6 PM this evening described as a left-sided twinge occurring while he was driving. Patient subsequently became diaphoretic. He had noted a elevation in his heart rate based on readings of his Fit Bit. No reports of shortness of breath, nausea or vomiting. No prior history of cardiac disease. No reported family history. Patient is a nonsmoker. Drinks Alcohol only on occasions. On initial evaluation patient was afebrile and hemodynamically stable. Laboratory workup was unremarkable. EKG shows no ST changes. Chest x-ray was unremarkable. Patient states he is amenable for further evaluation with left heart catheter. Currently chest pain-free. Past Med Surg Social Fam HX - Past Medical History Medical history: no medical history, other Psychiatric history: no psych history - Past Surgical History Surgical History: no surgical history - Social History Smoking Status: Never smoker Smokeless Tobacco Status: No Alcohol use: rarely, occasionally Drug use: none - Family History Mother Living Status: Hx Family Cardiac Disorders: No Hx Family Respiratory Disorders: No Hx Family Cancer: No Hx Family GI Disorders: No Hx Family Endocrine Disorder: No Hx Family Neuromuscular Disorders: No Hx Family Neurologic Disorders: No Hx Family HEENT Disorders: No Hx Family Autoimmune Disorders: No Grandmother Living Status: Hx Family Cardiac Disorders: Yes (AAA) Internal Medicine - H&P: Meds Aspirin Enteric Coated [Aspirin EC] 81 mg PO DAILY #30 tablet. 04/03/19 [Rx] Metoprolol [Lopressor] 12.5 mg PO BID #60 tablet 04/03/19 [Rx] Nitroglycerin 0.4 mg SL Q5MIN PRN #10 tab.subl 04/03/19 [Rx] Atorvastatin Calcium [Lipitor] 20 mg PO HS 04/11/19 [History] Allergy/AdvReac Type Severity Reaction Status Date / Time Sulfa (Sulfonamide Allergy Swelling Verified 04/11/19 22:22 Antibiotics) of the Eye All Systems PM: A 10-system review of systems was performed and is negative for pertinent findings except as documented above in the HPI. - Constitutional Constitutional: no chills, no fever(s), no night sweats - EENT Eyes: no change in vision, no discharge, no pain, no photophobia Ears: no ear discharge, no ear pain, no tinnitus Nose, mouth and throat: no dysphagia, no nasal discharge, no neck pain, no sore throat - Cardiovascular Cardiovascular ROS IM: no chest pain, no diaphoresis, no dyspnea, no lightheadedness, no palpitations, no syncope - Respiratory Respiratory: no cough, no dyspnea, no wheezing, no excessive phlegm production - Gastrointestinal Gastrointestinal: no abdominal pain, no diarrhea, no hematemesis, no hematochezia, no melena, no nausea, no vomiting - Musculoskeletal Musculoskeletal ROS IM: no numbness, no tingling - Integumentary Integumentary IM: no rash, no unusual bruising - Neurological Neurological ROS: no confusion, no convulsions, no focal weakness, no numbness, no tingling, no tremor(s) - Hematologic/Lymphatic Hematologic/Lymphatic: no easy bruising - Constitutional Vitals: Temp Pulse Resp BP Pulse Ox 97.6 F 62 16 120/83 95 04/11/19 22:55 04/11/19 22:55 04/11/19 22:55 04/11/19 22:55 04/11/19 22:55 Exam: General: Alert and oriented 3 Skin:Normal color, no rash, no lesions. HEENT:EOM, pupils equal, round and reactive. Cardiovascular:Normal S1 & S2, no rubs, murmurs or gallops. No JVD. Pulse regular. Lungs:Normal breath sounds, no wheezes or crackles. Abdomen:Soft, non-tender, no rigidity. Extremities:No deformity, no edema or tenderness, no joint swelling or clubbing. Neurological:Normal cognition and motor skills. Pulses:Carotid and radial pulses normal +2. Rest of the physical exam is non contributory Internal Med - H&P Results - Labs CBC & Chem 7: 04/11/19 19:58 04/11/19 19:58 Labs: Short CBC 04/11/19 Range/Units 19:58 WBC 7.0 (4.3-11.1) K/mcL Hgb 14.6 (12.9-16.9) g/dL Hct 41.2 (37.5-50.1) % Plt Count 224 (140-400) K/mcL Neutrophils # 4.6 (1.6-8.9) K/mcL BMP 04/11/19 19:58 Sodium 137 Potassium 3.6 Chloride 104 Carbon Dioxide 21 L BUN 12 Creatinine 0.83 Glucose 93 Calcium 8.7 Cardiac Enzymes 04/11/19 Range/Units 19:58 Troponin I < 0.03 (< 0.04) ng/mL - Impressions ITS Impressions Chest X-Ray 04/11/19 20:01 IMPRESSION: No acute abnormality identified. D/ / Adonis Khan MD / Adonis Khan MD Interpreting Provider: Adonis Khan MD - Assessment and Plan (1) Chest pain Current Visit: Yes Status: Acute Assessment and plan: Patient presenting with atypical chest pain. Initial troponin negative. EKG shows no ST or T-wave changes concerning for ischemia. Previous workup notable for abnormal stress test showing medium-size persistent perfusion defect which is moderate in intensity in the mid inferior and mid inferior septal segments suggestive of a prior infarct. Previous echocardiogram showed an EF of 60-65% with normal LV chamber size and wall thickness. Mild left ventricular diastolic dysfunction. Atypical septal motion consistent with bundle branch block. No significant valvular dysfunction. atient given a loading dos -Telemetry -Trend troponin -Sublingual nitroglycerin as needed -Cardiology consulted. We will keep NPO for possible heart catheter tomorrow. Qualifiers: Chest pain type: other chest pain Qualified Code(s): R07.89 - Other chest pain; R07.8 - Other chest pain (2) DVT prophylaxis Current Visit: No Status: Acute - Time Spent With Patient Total time spent is greater than 50% in coordination of care (as documented) at patient's floor/unit and/or counseling patient:
[2019-04-12 07:12] VITALS: BP 126/84
[2019-04-12] MEDS ORDERED: Aspirin Enteric Coated 81 MG Tablet PO SCH (09:00)
--- NOTE | 2019-04-12 09:43 | Cardiology Consult Note ---
<Zac Barker N - Last Filed: 04/12/19 11:29> Date of Encounter: 04/12/19 Time of Encounter: 09:36 Assessment and Plan (1) Chest pain Status: Acute 54M with PMH significant for an abnormal stress test on 04/02/19 presents with CP described as a left-sided twinge while driving Labs significant for troponins negative 2. ECG shows NSR no sign of acute ischemia. CXR negative. Echo from 04/02/19 with EF of 60-65% and normal motion of all wall segments. Nonexercise nuclear stress test from 04/02/19 that was read as medium-sized persistent perfusion defect of the mid inferior septal segment suggesting prior infarct. -Continue medical management with Aspirin 81 mg, lopressor 12.5 mg BID, and lipitor 20 mg -NPO at midnight -Plan for Left Heart Cath in the morning. Qualifiers: Chest pain type: other chest pain Qualified Code(s): R07.89 - Other chest pain; R07.8 - Other chest pain Discussion w patient/family: The assessment and plan as outlined above was discussed with the patient and/or family members who expressed understanding and agreement. All questions were answered. Thank you for involving us in the care of your patient. Please call with any questions. History of Present Illness Consult date: 04/12/19 Chief complaint: Chest Pain History of present illness: Mr. Jackson is a 54 year old male with significant pmh of CAD presents for CP described as a left-sided twinge while patient was driving. The patient's symptoms associated with diaphoresis and elevated heart rate seen on patient's watch. Patient was seen on 04/01/19 and had cardiac workup that was positive for abnormal stress test that suggested a medium-sized persistent perfusion defect of the mid inferior septal segment suggesting prior infarct. Cardiology suggested at that time the patient have a left heart catheter, but patient declined and opted for medical management at that time with aspirin 81 mg, Lop ressor 12.5 mg twice a day, Lipitor 20 mg, and nitroglycerin. Vitals on admission pulse 66, respiratory rate 16, blood pressure of 141/85, and oxygen saturation 94% on RA. Labs significant for troponins negative 2. ECG shows NSR no sign of acute ischemia. CXR negative. Echo from 04/02/19 with EF of 60-65% and normal motion of all wall segments. Nonexercise nuclear stress test from 04/02/19 with changes as stated above. Past Med Surg Social Fam HX - Past Medical History Medical history: no medical history, other Psychiatric history: no psych history - Past Surgical History Surgical History: no surgical history - Social History Smoking Status: Never smoker Smokeless Tobacco Status: No Alcohol use: rarely, occasionally Drug use: none - Family History Mother Living Status: Hx Family Cardiac Disorders: No Hx Family Respiratory Disorders: No Hx Family Cancer: No Hx Family GI Disorders: No Hx Family Endocrine Disorder: No Hx Family Neuromuscular Disorders: No Hx Family Neurologic Disorders: No Hx Family HEENT Disorders: No Hx Family Autoimmune Disorders: No Grandmother Living Status: Hx Family Cardiac Disorders: Yes (AAA) Medications and Allergies Aspirin Enteric Coated [Aspirin EC] 81 mg PO DAILY #30 tablet.dr 04/03/19 [Rx] Metoprolol [Lopressor] 12.5 mg PO BID #60 tablet 04/03/19 [Rx] Nitroglycerin 0.4 mg SL Q5MIN PRN #10 tab.subl 04/03/19 [Rx] Atorvastatin Calcium [Lipitor] 20 mg PO HS 04/11/19 [History] Allergy/AdvReac Type Severity Reaction Status Date / Time Sulfa (Sulfonamide Allergy Swelling Verified 04/11/19 22:22 Antibiotics) of the Eye All Systems Review: The remainder of the systems were reviewed and are negative - Constitutional Constitutional: no chills, no fever(s) - EENT Eyes: no blurred vision, no loss of vision - Cardiovascular Cardiovascular: no chest pain at rest, no diaphoresis, no leg edema, no lightheadedness, no syncope - Respiratory Respiratory: no cough, no dyspnea - Gastrointestinal Gastrointestinal: no abdominal pain, no diarrhea, no nausea - Musculoskeletal Musculoskeletal: no abnormal gait, no muscle cramps - Integumentary Integumentary: no erythema, no rash - Neurological Neurological: no abnormal speech, no loss of vision - Psychiatric Psychiatric: anxiety, no depression - Hematological/Lymphatic Hematologic/Lymphatic: no easy bleeding, no easy bruising Physical Examination Vital Signs, Last 4 Hours Temp Pulse Resp BP Pulse Ox 04/12/19 07:08 98.5 F 71 18 126/84 96 General: Conversant, No Apparent Distress HEENT: Atraumatic, Normocephaly Neck: No JVD, Normal carotid pulses Cardiac: Reg Rate and Rhythm, Normal S1 and S2, No Murmur Lungs: Normal Breath Sounds, No Wheeze, Rales, Rhonchi Neuro: Alert and responsive, No focal deficits noted Abdomen: Soft, Non-Tender Skin: No rashes noted on visualized skin Musculoskeletal: No Chest Wall Tenderness Extremities: No Clubbing, No Cyanosis, No Edema Results 04/11/19 19:58 04/11/19 19:58 Lab Results 04/11/19 04/11/19 04/12/19 19:58 19:58 02:34 WBC 7.0 Hgb 14.6 Hct 41.2 Plt Count 224 Sodium 137 Potassium 3.6 Chloride 104 Carbon Dioxide 21 L BUN 12 Creatinine 0.83 Glucose 93 Calcium 8.7 Troponin I < 0.03 < 0.03 Consult Discharge Plan - Plan Instructions: Chest Pain (DC), Chest Pain (GEN) Referrals: [facility] [Provider Group] (Office will contact you with follow up appointment.) Jermaine Vasques DO [Primary Care Provider] - 04/17/19 9:30 am <Candida Carballo - Last Filed: 04/12/19 16:38> Date of Encounter: 04/12/19 - Attending Attestation I examined this patient and my medical decision-making was reviewed with the Resident Physician. I agree with the documented findings, disposition and treatment plan as described. Mr. Jackson presents with atypical chest symptoms not exacerbated by exertion. Serial troponins negative. No acute ECG changes. Personally reviewed Stress Test images/report from 04/02/2019 demonstrating a fixed inferior defect with normal wall motion most consistent with artifact. However, there is a small sized, mild intensity distal inferior perfusion defect during stress in which mild ischemia could not be excluded. These findings were discussed with the patient and in detail. This is a low risk finding. He is also not describing exertional chest pain. I offered the patient the option of medical management and observation vs proceeding with LHC. The R/B/A of LHC were discussed with the patient. He expressed understanding and has elected to decline LHC at this time. Recommend continuing antiplatelet agent, statin, BB and SL NTG. Advised a walking program to be started slowly at home. We will follow up with him in the outpatient setting. He was advised to call [phone] if he should experience severe/persistent chest pain. Assessment and Plan Discussion w patient/family: The assessment and plan as outlined above was discussed with the patient and/or family members who expressed understanding and agreement. All questions were answered. Thank you for involving us in the care of your patient. Please call with any questions. History of Present Illness History of present illness: Mr. Jackson is a 54 year old male All Systems Review: The remainder of the systems were reviewed and are negative Results 04/11/19 19:58 04/11/19 19:58 Lab Results 04/11/19 04/11/19 04/12/19 19:58 19:58 02:34 WBC 7.0 Hgb 14.6 Hct 41.2 Plt Count 224 Sodium 137 Potassium 3.6 Chloride 104 Carbon Dioxide 21 L BUN 12 Creatinine 0.83 Glucose 93 Calcium 8.7 Troponin I < 0.03 < 0.03
--- NOTE | 2019-04-12 10:18 | Event Note ---
Date of Encounter: 04/12/19 Time of Encounter: 10:18 Patient was seen and examined by hospitalist services early this morning. Patient presented after experiencing chest pain and had a previous abnormal stress test-he opted for medical management versus left heart catheter. Currently awaiting cardiology's recommendations for possible left heart catheter -either today or tomorrow. Currently patient denies any chest pain or shortness of breath that he is hemodynamically stable.
--- NOTE | 2019-04-12 15:22 | Discharge Summary ---
- NOTES TO OUTPATIENT PROVIDER Notes to Outpatient Provider: Follow up with cardiology as outpatient Date of Encounter: 04/12/19 Time of Encounter: 15:20 - Discharge Diagnosis (1) Chest pain Priority: Primary Status: Acute Qualifiers: Chest pain type: other chest pain Qualified Code(s): R07.89 - Other chest pain; R07.8 - Other chest pain Hospital course: Mr. Jackson is a 54 year old male with history of CAD presented to [facility] with chest pain left-sided twinging White was driving. He associates symptoms of diaphores is with elevated heart rate. On 04/01/19 he had a cardiac workup which was positive for abnormal stress [id number] persistent perfusion defect of the mid inferior septal segment suggesting prior infarct cardiology suggested patient had a left heart catheter however at this time he opted for medical management and was discharged home on aspirin and Lopressor Lipitor and nitroglycerin.-Troponins were negative 2 chest x-ray with nothing acute EKG was sinus rhythm with no acute ischemia. Cardiac echo Echo from 04/02/19 with EF of 60-65% and normal motion of all wall segments. Patient was seen by cardiology - he will continue with current medical management regime of aspirin Lopressor Lipitor nitroglycerin. He will follow up cardiology as outpatient. Currently his hemogram stable with no chest pain this time and ready for discharge. - Time Spent with Patient Total time spent providing and/or coordinating discharge services: - Discharge Medications Prescriptions: Continued Aspirin Enteric Coated [Aspirin EC] 81 mg PO DAILY #30 tablet. Metoprolol [Lopressor] 12.5 mg PO BID #60 tablet Nitroglycerin 0.4 mg SL Q5MIN PRN #10 tab.subl PRN Reason: Chest Pain Atorvastatin Calcium [Lipitor] 20 mg PO HS Home Medications: Aspirin Enteric Coated [Aspirin EC] 81 mg PO DAILY #30 tablet. 04/03/19 [Rx] Metoprolol [Lopressor] 12.5 mg PO BID #60 tablet 04/03/19 [Rx] Nitroglycerin 0.4 mg SL Q5MIN PRN #10 tab.subl 04/03/19 [Rx] Atorvastatin Calcium [Lipitor] 20 mg PO HS 04/11/19 [History] Allergies/Adverse Reactions: Allergy/AdvReac Type Severity Reaction Status Date / Time Sulfa (Sulfonamide Allergy Swelling Verified 04/11/19 22:22 Antibiotics) of the Eye Date of admission: 04/11/19 21:38 Primary care physician: Jermaine Vasques DO Consults: 04/11/19 21:22 Consult to Cardiology [CONS] Stat Comment: Consulting Provider: [facility] Reason for Consult: chest pain and abnormal stress test Call Completed: Yes Discharging clinician: Lou Aldridge Anticipated date of discharge: 04/12/19 - Constitutional Vitals: Temp Pulse Resp BP Pulse Ox 98.5 F 71 18 126/84 96 04/12/19 07:08 04/12/19 07:08 04/12/19 07:08 04/12/19 07:08 04/12/19 07:08 Exam: Skin: Free of rash and discoloration. Eyes: Sclera is white. There is no discharge from eyes. ENMT: Oral/pharyngeal mucosa is normal in appearance. There is no discharge from nose or ears. Respiratory: Normal breath sounds with no crackles and wheezes bilaterally. CV: Heart is regular with no gallop or murmur. GI: Abdomen is flat and soft with no palpable mass or visceromegaly. : There is no tenderness in patient's flanks bilaterally. Neuro exam: He has good strength in upper and lower extremities. He has normal eye movements. Psychiatric: He has normal affect. His thought process is appropriate to the si tuation. - Patient Status Disposition: Home, Self-Care Condition: Fair Functional capacity at discharge: independent ambulation - Discharge Instructions Follow Up With: Jermaine Vasques DO [Primary Care Provider] - 04/17/19 9:30 am - Diet and Activity Activity: increase activity as tolerated Diet: advance to your usual diet
--- NOTE | 2019-04-14 08:41 | Electrocardiograph Report ---
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
== END 2019-04-12 16:05 | disposition home or self-care (01) ==
LOC: EMEROOARM 19:30 → 3BNU 19:30
PROVIDERS: ADMIT Internal Medicine Nephrology; ATTEND Internal Medicine Nephrology